=== PATIENT | male | born 1965 | race Caucasian/White ===

== ENCOUNTER → 2016-12-09 | Day surgery (SDC) | payer OTHER ==
[~2016-12-09] VITALS: Ht 185.4 cm; Wt 123.3 kg
[~2016-12-09] MED LIST: BUPIVACAINE HCL PF 0.5% 30 ML VIAL ONE; CHLORHEXIDINE GLUCONATE 2 % 1 PACK (2 CLOTHS) TOPICAL PRN; DEXAMETHASONE SOD PHOS 4 MG/ML VIAL IV ONE; DO NOT ADM ANY ANTICOAGULANT DRUGS PRN; HEPARIN SODIUM - IV 10,000 UNITS/10 ML VIAL ONE; HEPARIN-NS/PF INJ 500 ML ONE; INSULIN HUMAN REGULAR 1,000 UNITS/10 ML VIAL SQ PRN; IOHEXOL IV ONE; LACTATED RINGER'S 1000 ML INJ 1,000 ML IV ONE; LACTATED RINGER'S 1000 ML IV PRN; LEVO25TA4 PO; LIDOCAINE HCL 1% PF 5 ML AMPULE OTHER ONE; MEDI220T PO; METOPROLOL TARTRATE 25 MG TAB PO PRN; MORPHINE SULFATE 4 MG/ML INJ IV PRN; ONDANSETRON HCL 4 MG/2 ML VIAL IV PUSH ONE; PHENYLEPH/NS 1000 MCG/10 ML SYR IV ONE; POVIDONE IODINE 5% (ANTISEPSIS KIT) 4 APPLICATIONS EACH NARE PRN; PROPOFOL 200 MG/20 ML AMP IV ONE; PROTAMINE SULFATE 50 MG/5 ML VIAL ONE; SODIUM CHLORID 0.9% 500 ML IV PRN; THROMBIN (TOPICAL) 20,000 UNIT SPRAY KIT ONE; ceFAZolin 2 GM PREMIX 50 ML ONE; ePHEDrine/NS 25 MG/5 ML SYR IV ONE
--- NOTE | 2016-12-09 11:07 | PD.VS.PN ---
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 Ready for AVM attempted embolization. No change in history or physical since seen in clinic. Orders: NPO Ancef 1g IV OCTOR Post-operative destination: PACU Operative site marked: Yes Consent: Informed consent has been obtained from Lawrence Ibarra. I have explained the procedure in detail and discussed the risks, benefits, and potential complications. All questions have been answered. Patient contact information: [phone] Jose Madrigal MD Dec 09, 2016 11:07
--- NOTE | 2016-12-09 11:07 | PD.VS.PN ---
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 Ready for AVM attempted embolization. No change in history or physical since seen in clinic. Orders: NPO Ancef 1g IV OCTOR Post-operative destination: PACU Operative site marked: Yes Consent: Informed consent has been obtained from Lawrence Ibarra. I have explained the procedure in detail and discussed the risks, benefits, and potential complications. All questions have been answered. Patient contact information: [phone] Jose Madrigal MD Dec 09, 2016 11:07
--- NOTE | 2016-12-09 11:07 | PD.VS.PN ---
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 Ready for AVM attempted embolization. No change in history or physical since seen in clinic. Orders: NPO Ancef 1g IV OCTOR Post-operative destination: PACU Operative site marked: Yes Consent: Informed consent has been obtained from Lawrence Ibarra. I have explained the procedure in detail and discussed the risks, benefits, and potential complications. All questions have been answered. Patient contact information: [phone] Jose Madrigal MD Dec 09, 2016 11:07
[2016-12-09 11:32] LABS: AUTOMATED NEUTROPHIL # 4.3 TH/MM3 (1.8-7.7); BASOPHIL % 0.4 % (0.0-2.0); EOSINOPHIL # 0.1 TH/MM3 (0-0.4); EOSINOPHIL % 1.4 % (0.0-4.0); HEMATOCRIT 44.3 % (39.0-51.0); HEMOGLOBIN 15.2 GM/DL (13.0-17.0); LYMPH % 21.5 % (9.0-44.0); LYMPHOCYTE # 1.4 TH/MM3 (1.0-4.8); MEAN CELL VOLUME 87.9 FL (80.0-100.0); MEAN CORPUSCULAR HEMOGLOBIN 30.2 PG (27.0-34.0); MEAN CORPUSCULAR HGB CONC 34.3 % (32.0-36.0); MEAN PLATELET VOLUME 7.5 FL (7.0-11.0); MONO % 9.9 % (0.0-8.0); MONOCYTE # 0.6 TH/MM3 (0-0.9); NEUT % 66.8 % (16.0-70.0); PLATELET COUNT 177 TH/MM3 (150-450); RED BLOOD COUNT 5.04 MIL/MM3 (4.50-5.90); RED CELL DISTRIBUTION WIDTH 13.4 % (11.6-17.2); WHITE BLOOD COUNT 6.4 TH/MM3 (4.0-11.0)
[2016-12-09 11:39] LABS: INTERNATIONAL NORMALIZED RATIO 1.1 RATIO
[2016-12-09 11:54] LABS: BICARBONATE 29.2 MEQ/L (21.0-32.0); CALCIUM 9.6 MG/DL (8.5-10.1); CREATININE 1.13 MG/DL (0.60-1.30)
--- NOTE | 2016-12-09 14:08 | HHI.PR ---
Immediate Post Op Note Procedure Date: Dec 09, 2016 Pre Op Diagnosis: R foot AVM Post Op Diagnosis: R foot AVM Surgeon: Jose Madrigal Geospatial Extractor Analysis(s): Parish Corcoran Procedure: R LE angiogram R foot AVM via R DP and R PT Findings: diminution of AVM filling Additional Information: palpable DP at conclusion of case Complications: none Specimen(s) removed: none Estimated blood loss: 50mL Anesthesia: LMA Drains: None Fluids: 100mL IVF Patient to: PACU Patient Condition: Good Implant/Devices: SEE IMPLANT LOG (if applicable) Date/Time of Procedure: SEE SURGICAL CARE RECORD Jose Madrigal MD Dec 09, 2016 14:08
--- NOTE | 2016-12-09 14:47 | PD.VS.PN ---
Subjective POD #: 0 Procedure(s): R LE angiogram R foot AVM via R DP and R PT Subjective/Hospital Course Pt laying flat in PACU ALERT in NAD Pain controlled Slight swelling to Right groin incision noted-non tender Objective Vitals/I&O Date Time Temp Pulse Resp B/P (MAP) Pulse Ox O2 Delivery O2 Flow Rate FiO2 12/09/16 14:30 66 15 96/57 (70) 97 Room Air 12/09/16 14:15 75 20 102/58 (73) 99 Room Air 12/09/16 14:08 97.5 72 18 103/62 (76) 100 Nasal Cannula 3 12/09/16 11:05 98.6 77 18 134/83 (100) 100 12/09/16 12/09/16 12/09/16 07:00 15:00 23:00 Intake Total 1000 ml Output Total 50 ml Balance 950 ml Exam: GENERAL: A&OX3,NAD, GCS15 SKIN: BLE Warm and dry with motor intact Dressing to Right foot I/C/D Pt w/ BILAT palpable DP Right groin incision with slight swelling/NON tender Laboratory Laboratory Tests Test 12/09/16 11:05 White Blood Count 6.4 Red Blood Count 5.04 Hemoglobin 15.2 Hematocrit 44.3 Mean Corpuscular Volume 87.9 Mean Corpuscular Hemoglobin 30.2 Mean Corpuscular Hemoglobin Concent 34.3 Red Cell Distribution Width 13.4 Platelet Count 177 Mean Platelet Volume 7.5 Neutrophils (%) (Auto) 66.8 Lymphocytes (%) (Auto) 21.5 Monocytes (%) (Auto) 9.9 Eosinophils (%) (Auto) 1.4 Basophils (%) (Auto) 0.4 Neutrophils # (Auto) 4.3 Lymphocytes # (Auto) 1.4 Monocytes # (Auto) 0.6 Eosinophils # (Auto) 0.1 Basophils # (Auto) 0.0 CBC Comment DIFF FINAL Differential Comment Prothrombin Time 12.0 Prothromb Time International Ratio 1.1 Blood Urea Nitrogen 18 Creatinine 1.13 Random Glucose 91 Calcium Level 9.6 Sodium Level 137 Potassium Level 3.7 Chloride Level 103 Carbon Dioxide Level 29.2 Anion Gap 5 Estimat Glomerular Filtration Rate 69 Assessment and Plan Assessment: (1) History of femoral angiogram Plan Plan Pt doing well post operatively Pain controlled Pt with mild swelling to Right groin non tender Pt with strong R/L palpable DP Plan Pt to be d/c today Arranged out pt f/u in 2W Gabrielle CRAIN [facility] [phone] Gabrielle Moreno Dec 09, 2016 14:47
[2016-12-09 18:15] VITALS: BP 123/79; PULSE 82; RESP 18; TEMP 97.5; O2SAT 96
--- NOTE | 2016-12-10 10:07 | MP ---
cc: JOSE MADRIGAL DATE OF SURGERY 12/09/16 PREOPERATIVE DIAGNOSIS Right foot AVM. POSTOPERATIVE DIAGNOSIS Right foot AVM. PROCEDURE 1. Right lower extremity angiogram. 2. Embolization of branches of the dorsalis pedis artery. 3. Embolization branches of the posterior tibial artery. ATTENDING SURGEON Jose Madrigal MD MATH AND SCIENCE DIVISION CHAIR SURGEON Parish Corcoran. ANESTHESIA LMA. INDICATIONS Mr. Ibarra is a 51-year-old gentleman with a venous stasis ulcer. On further examination he has an obvious thrill on the dorsum of his foot and imaging suggests he had an AVM. He is taken to the operating room for angiographic evaluation and potential treatment. There is no prior cath based imaging available for my review. DETAILS OF PROCEDURE Informed consent obtained. The patient is taken to the operating room and placed supine on the operating room table. Appropriate time-out was taken to identify the patient, the operative site and the planned procedure. Two grams Ancef was initiated prior to skin incision, will be discontinued after single preoperative dose. Everyone in the room agreed to timeout and we proceeded. His right groin was prepped and draped. Incision was made at the proximal aspect of the upper thigh, carried down to subcutaneous tissue with electrocautery. The SFA was dissected free and circled with a vessel loop. A 21 gauge micropuncture needle was used to access the thigh. in an antegrade fashion this was exchanged using Seldinger technique for micropuncture sheath which a 0.035 Glidewire was introduced. The micropuncture sheath was exchanged for a 5-Dominican 25 cm sheath. A Berenstein catheter was placed over this and navigated down to the anterior tibial artery and indeed down to the dorsalis pedis artery. Foot angiogram was obtained, the patient was systemically heparinized with 5000 units of IV heparin. A Progreat micro catheter was then advanced and advanced through the branches of the dorsalis pedis artery into the AV fistula and a series of 6 and 5 mm coils were then placed. The catheter was then retracted back to the popliteal artery and the posterior tibial artery was carefully selected and we followed the Glidewire and 035 Berenstein catheter and an appropriate catheter down the branch of the posterior tibial artery and indeed into the arterious malformation. This branch was coil embolized with a 7 mm coil. Wire catheter and sheath were removed. The arteriotomy was closed with 6-0 Prolene suture. The wound was made hemostatic, irrigated, infiltrated with Marcaine and closed with 2-0 Polysorb, 3-0 Polysorb, 4-0 Monocryl. The sponge and needle counts were correct at the end of the case. I was present for the entire procedure. INTERPRETATION OF IMAGES The patient has no occlusive disease. His only anatomic variant besides the arteriovenous malformation is a high posterior tibial artery takeoff. The arteriovenous malformation fills branches of both the dorsalis pedis and posterior tibial arteries. Jose Madrigal MD RJF/EO /2:14 PM /9:42 AM MTDD
== END | disposition home or self-care (01) ==
LOC: HCVO 10:22
PROVIDERS: ATTEND Surgery
DX: Q27.39 Arteriovenous malformation, other site (principal); E03.9 Hypothyroidism, unspecified; G47.30 Sleep apnea, unspecified; E66.9 Obesity, unspecified; Z68.35 Body mass index [BMI] 35.0-35.9, adult; Z79.899 Other long term (current) drug therapy
CPT/HCPCS: 75710; 80048; 85025; 85610; C1725; C1769; J0690; J1100; J1644; J2370; J2405; J2720; J3010; J7120